=== PATIENT | male | born 2000 | race Caucasian/White ===

== ENCOUNTER 2024-01-03 20:07 | Emergency (ER) | payer SELFPAY ==
[~2024-01-03] VITALS: Ht 165.1 cm; Wt 75.7 kg
[2024-01-03 20:11] VITALS: BP 128/70; PULSE 76; RESP 18; TEMP 98; O2SAT 98
[2024-01-03] MEDS ORDERED: BACI-418 TP (20:44)
[2024-01-03] MEDS ORDERED: CEPH-588 PO (20:44)
[2024-01-03] MEDS ORDERED: IBUP-2213 PO (20:44)
[2024-01-03 20:49] VITALS: BP 128/70; PULSE 76; RESP 18; TEMP 98; O2SAT 98
== END 2024-01-03 20:49 | disposition home or self-care (01) ==
LOC: MED 20:07
DX: L60.0 Ingrowing nail (principal); Z79.1 Long term (current) use of non-steroidal anti-inflammatories (NSAID); Z79.2 Long term (current) use of antibiotics; Z79.899 Other long term (current) drug therapy
CPT/HCPCS: 99283